=== PATIENT | male | born 1995 | race Caucasian/White ===

== ENCOUNTER 2018-10-23 14:29 | Emergency (ER) | payer OTHER ==
[~2018-10-23] VITALS: Ht 190.5 cm; Wt 68.0 kg
[2018-10-23 14:44] VITALS: BP 133/86
[2018-10-23] MEDS ORDERED: DIPHTH,PERTUSS(ACELL),TET TOX 0.5 ML DISP.SYRIN. VAX IM ONE (15:00)
[2018-10-23] MEDS ORDERED: LIDOCAINE 1% Multi-Dose 20 ML VIAL. INJ ONE (15:00)
[2018-10-23] MEDS ORDERED: LIDOCAINE/EPI/TETRACAINE TOPICAL GEL 3 ML. TP ONE (15:00)
--- NOTE | 2018-10-23 16:18 | PHYS DOC ---
Past Medical History Past Medical History: No Pertinent History (ALDO AYALA APRN) Past Surgical History: Other Additional Past Surgical Histo: CLEFT PALLET SURGERY (ALDO AYALA APRN) Alcohol Use: None Drug Use: None (ALDO AYALA APRN) Adult General Chief Complaint Chief Complaint: LACERATION/AVULSION HPI HPI Patient is a 23 year old 23-year-old male who presents with left forehead laceration, patient states he got hit by a metal accidentally at work. Denies any loss of consciousness. (ALDO AYALA APRN) Review of Systems Review of Systems Constitutional: Denies fever or chills [] Eyes: Denies change in visual acuity, redness, or eye pain [] HENT: Denies nasal congestion or sore throat [] Respiratory: Denies cough or shortness of breath [] Cardiovascular: No additional information not addressed in HPI [] GI: Denies abdominal pain, nausea, vomiting, bloody stools or diarrhea [] : Denies dysuria or hematuria [] Musculoskeletal: Denies back pain or joint pain [] Integument: Reports left forehead laceration Neurologic: Denies headache, focal weakness or sensory changes [] All other systems were reviewed and found to be within normal limits, except as documented in this note. (ALDO AYALA APRN) Current Medications Current Medications Current Medications Medications (Trade) Dose Ordered Sig/Ward Start Time Stop Time Status Last Admin Dose Admin Diphtheria/ Tetanus/Acell Pertussis (Boostrix) 0.5 ml ONCE ONCE 10/23/18 15:00 10/23/18 15:01 DC 10/23/18 15:16 0.5 ML Lidocaine HCl (Lidocaine 1% 20ml Vial) 20 ml 1X ONCE 10/23/18 15:00 10/23/18 15:01 DC 10/23/18 15:16 20 ML Lidocaine/ Epinephrine (Let Topical) 3 ml 1X ONCE 10/23/18 15:00 10/23/18 15:01 DC 10/23/18 15:14 3 ML (ZACARIAS PIZANO DO) Allergies Allergies Allergies Coded Allergies Type Severity Reaction Last Updated Verified No Known Drug Allergies 10/23/18 No (ZACARIAS PIZANO DO) Physical Exam Physical Exam Constitutional: Well developed, well nourished, no acute distress, non-toxic appearance. [] HENT: Normocephalic, atraumatic, bilateral external ears normal, oropharynx moist, no oral exudates, nose normal. [] Eyes: PERRLA, EOMI, conjunctiva normal, no discharge. [] Neck: Normal range of motion, no tenderness, supple, no stridor. [] Cardiovascular:Heart rate regular rhythm, no murmur [] Lungs & Thorax: Bilateral breath sounds clear to auscultation [] Abdomen: Bowel sounds normal, soft, no tenderness, no masses, no pulsatile masses. [] Skin: Warm, dry, left forehead with a V-shaped laceration approximately 7 cm. Back: No tenderness, no CVA tenderness. [] Extremities: No tenderness, no cyanosis, no clubbing, ROM intact, no edema. [] Neurologic: Alert and oriented X 3, normal motor function, normal sensory function, no focal deficits noted. [] Psychologic: Affect normal, judgement normal, mood normal. [] (ALDO AYLAA APRN) Current Patient Data Vital Signs Vital Signs Date Time Temp Pulse Resp B/P (MAP) Pulse Ox O2 Delivery O2 Flow Rate FiO2 10/23/18 14:44 98.0 84 16 133/86 (102) 100 Room Air 98.0 (PIZANOZACARIAS REEVES DO) EKG EKG [] (ALDO AYALA APRN) Radiology/Procedures Radiology/Procedures Laceration/Wound Repair Wound Location: Left forehead laceration Wound's Depth, Shape: V-shaped Wound Length (cm): Approximately 7 cm Wound Explored: clean Irrigated w/ Saline (ccs): 20 Betadine Prep?: Yes Anesthesia: Let solution then 1% of lidocaine Volume Anesthetic (ccs): Approximately 1 mL of let and 7 mL of lidocaine Wound Repaired With: Dissolvable gut Suture Size/Type: 6.0 and 5.0 Number of Sutures: Inner laceration was repaired with one interrupted sutures , exterior laceration was repaired with 13 interrupted sutures. Progress : Wound was left open to air (ALDO AYALA APRN) Course & Med Decision Making Course & Med Decision Making Pertinent Labs and Imaging studies reviewed. (See chart for details) Patient has forehead laceration that was repaired by me as noted in procedures. Wound care instructions and return precautions provided. Tetanus updated. (ALOD AYALA APRN) Dragon Disclaimer Dragon Disclaimer This electronic medical record was generated, in whole or in part, using a voice recognition dictation system. (ALDO AYALA APRN) Departure Departure Impression: Primary Impression: Forehead laceration Disposition: 01 HOME, SELF-CARE Condition: STABLE Referrals: NO PCP (PCP) Follow-up in 1-2 weeks with your doctor as needed Patient Instructions: Facial Laceration, [id number] Additional Instructions: You were seen for left forehead laceration that was repaired with dissolvable sutures, they will dissolve and fall off in a couple days. Keep the area clean and dry. Apply Neosporin to the area twice a day. Monitor the area for any signs of infection including but not limited to increased redness the area, warmth to the area, yellow drainage from the area and return to the ED or see a doctor if they occur. Attending Signature Attending Signature I have reviewed the PA/POULTRY BONER's note and plan of care. I was available for consultation as needed during the patient's visit in the emergency department. I agree with the clinical impression, plan, and disposition. (ZACARIAS PIZANO DO) Problem Qualifiers Primary Impression: Forehead laceration Encounter type: initial encounter Qualified Codes: S01.81XA - Laceration without foreign body of other part of head, initial encounter ALDO AYALA APRN Oct 23, 2018 16:18 ZACARIAS PIZANO DO Oct 24, 2018 00:34
== END 2018-10-23 16:23 | disposition home or self-care (01) ==
LOC: ER 14:29
DX: S01.81XA Laceration without foreign body of other part of head, initial encounter (principal); W22.8XXA Striking against or struck by other objects, initial encounter; Y93.89 Activity, other specified; Y92.89 Other specified places as the place of occurrence of the external cause; Y99.0 Civilian activity done for income or pay
CPT/HCPCS: 12013; 12014; 90471; 90715; 99283